=== PATIENT | male | born 1975 | race Caucasian/White ===

== ENCOUNTER 2016-06-26 11:26 | Emergency (ER) | payer BC ==
[2016-06-26] MEDS ORDERED: SODIUM CHLORIDE 0.9% 500 ML IV STA (12:01)
[2016-06-26] MEDS ORDERED: LORazepam 2 MG/ML SYRINGE IV STA (12:01)
[2016-06-26] MEDS ORDERED: SODIUM CHLORIDE 0.9% 1,000 ML IV STA (12:01)
[2016-06-26] MEDS ORDERED: ACETAMINOPHEN TAB 500 MG TAB PO STA (12:02)
--- NOTE | 2016-06-26 12:08 | ED ---
General Adult HPI - General Chief complaint: Arrhythmia/Palpitations Stated complaint: RAPID HEARTRATE Time Seen by Provider: 06/26/16 11:42 Source: patient, family, RN notes reviewed Mode of arrival: wheelchair Limitations: no limitations - History of Present Illness Initial comments: Chief complaint history of [id number] male here with his father. The patient is a teacher. For the last several days he's been having upper respiratory tract type infection sinus type infections. Went to a local urgent care and while there was found to have heart rate 125 or higher. EKG at that time shows sinus tachycardia. Temperature the 100.5. Patient also reports she has anxiety and that may be leading in part to it he does report is on again off again shortness of breath he states difficult to determine whether its illness related or anxiety related. Today's mildly diaphoretic as well. No chest pain. No nausea no vomiting. - Related Data Home Medications Medication Instructions Recorded Confirmed Benzoyl Peroxide/Hydrocortison 1 applic TOPICAL DAILY 06/26/16 06/26/16 [Vanoxide-Hc Lotion] Butalb/Acetaminophen/Caffeine 1 - 2 tab PO Q4-6H PRN MDD 4 TAB 06/26/16 06/26/16 [Dqnhpf-Oiacptaz-Ygwx 50-325-40] Citalopram Hydrobromide [CeleXA] 30 mg PO DAILY 06/26/16 06/26/16 Clindamycin Topical Soln 1 applic TOPICAL BID 06/26/16 06/26/16 [Cleocin-T Topical Soln] Cyclobenzaprine [Flexeril] 10 mg PO HS 06/26/16 06/26/16 L.acidoph,Paracasei, B.lactis 1 cap PO TID 06/26/16 06/26/16 [Probiotic] Loratadine [Claritin] 10 mg PO DAILY 06/26/16 06/26/16 Tretinoin [Retin-A] 1 applic TOPICAL DAILY 06/26/16 06/26/16 Triamcinolone 0.025% Cream 1 applic TOPICAL BID PRN 06/26/16 06/26/16 [Kenalog] Previous Rx's Medication Instructions Recorded Amoxicillin/Potassium Clav 1 each PO Q12HR #20 tab 06/26/16 [Augmentin 875-125 Tablet] Orphenadrine [Norflex] 100 mg PO Q12H #10 tablet.er 06/26/16 Allergies Allergy/AdvReac Type Severity Reaction Status Date / Time povidone-iodine Allergy Rash/Hives Verified 06/26/16 12:29 [From Betadine] soap [From Betadine] Allergy Rash/Hives Verified 06/26/16 12:29 Review of Systems ROS Statement: Those systems with pertinent positive or pertinent negative responses have been documented in the HPI. Review of systems. No headache he does complain of mild congestion. And a productive orange/ greenish colored phlegm. No neck pain, no nausea, no vomiting. No nausea no vomiting no abdominal pain. No chest pain shortness of breath with exertion. All systems are reviewed past medical problems anxiety and migraine tension headaches which takes Fioricet. Surgeries include tonsils and a schwannoma removed from his back. Family history grandfather had lung cancer another grandfather had an IL when he was 66. The patient has ALLERGIES to seasonal ALLERGIES and Betadine. Nonsmoker nondrinker. ROS Other: All systems not noted in ROS Statement are negative. Past Medical History Past Medical History: No Reported History History of Any Multi-Drug Resistant Organisms: None Reported Past Surgical History: Tonsillectomy Additional Past Surgical History / Comment(s): skin biopsy Past Psychological History: Anxiety Smoking Status: Never smoker Past Alcohol Use History: None Reported Past Drug Use History: None Reported General Exam - General Exam Comments Initial Comments: General: The patient is awake and alert, admittedly anxious. With history of anxiety. Vital signs temp 100.5 pulse 140 respiratory rate 18 pulse ox 99% room air blood pressure 142/87 elevated systolic and diastolic most likely due to his anxiety. Eye: Pupils are equal, round and reactive to light, extra-ocular movements are intact ; there is normal conjunctiva bilaterally. No signs of icterus. Ears, nose, mouth and throat: There are moist mucous membranes and no oral lesions. Neck: The neck is supple, there is no tenderness , no anterior cervical lymphadenopathy Cardiovascular: Tachycardic heart rate 120-140. No murmur, rub or gallop is appreciated. Respiratory: Lungs are clear to auscultation, respirations are non-labored, breath sounds are equal. No wheezes, stridor, rales, or rhonchi. Gastrointestinal: Soft, non-distended, non-tender abdomen without masses or organomegaly noted. There is no rebound or guarding present. No CVA tenderness. Bowel sounds are unremarkable. Back: There is no tenderness to palpation in the midline. There is no obvious deformity. No rashes noted. Musculoskeletal: Normal ROM, no tenderness, There is no pedal edema. There is no calf tenderness or swelling. Sensation intact. Pulses equal bilaterally 2+. Neurological: CN II-XII intact, There are no obvious motor or sensory deficits. Coordination appears grossly intact. Speech is normal. Skin: Skin is warm and dry and no rashes or lesions are noted. Psychiatric: Patient admits she has anxiety issues and problems. Limitations: no limitations Course Vital Signs 06/26/16 06/26/16 11:35 12:18 Temperature 100.5 F H Pulse Rate 140 H Pulse Rate [ 120 H Parent Educator ] Respiratory 18 18 Rate Blood Pressure 142/87 O2 Sat by Pulse 99 Oximetry EKG Findings - EKG Comments: EKG Findings:: EKG was done and reviewed at 1159 showing sinus tachycardia rate 129 IN interval was 150 QRS 88 QT [address] elevation mild left atrial enlargement. Nonspecific T-wave changes. Dr. Cast Medical Decision Making - Medical Decision Making Patient's feeling better heart rate has dropped into the 90s and then when talking up to 120 given. The patient is admittedly anxious. I reviewed with them the numbers. The only elevated numbers total bilirubin which the patient reports as typically always elevated his father also has a problem with Gilbert' s syndrome. There is no pain in the right upper quadrant. The patient be placed on Augmentin 875 twice a day for 10 days. He'll be off work tomorrow and advised follow-up with family physician as needed. Also told switched from Flexeril to Norflex. - Lab Data Result diagrams: 06/26/16 12:00 06/26/16 12:00 Lab Results 06/26/16 06/26/16 06/26/16 Range/Units 12:00 12:00 12:00 WBC 11.1 H (3.8-10.6) k/uL RBC 4.96 (4.30-5.90) m/uL Hgb 14.8 (13.0-17.5) gm/dL Hct 42.9 (39.0-53.0) % MCV 86.5 (80.0-100.0) fL MCH 29.8 (25.0-35.0) pg MCHC 34.5 (31.0-37.0) g/dL RDW 13.4 (11.5-15.5) % Plt Count 236 (150-450) k/uL Neutrophils % 86 % Lymphocytes % 5 % Monocytes % 5 % Eosinophils % 0 % Basophils % 0 % Neutrophils # 9.6 H (1.3-7.7) k/uL Lymphocytes # 0.6 L (1.0-4.8) k/uL Monocytes # 0.6 (0-1.0) k/uL Eosinophils # 0.1 (0-0.7) k/uL Basophils # 0.0 (0-0.2) k/uL PT (9.0-12.0) sec INR (<1.1) APTT (22.0-30.0) sec D-Dimer (<0.60) mg/L FEU Sodium 144 (137-145) mmol/L Potassium 4.0 (3.5-5.1) mmol/L Chloride 102 (98-107) mmol/L Carbon Dioxide 26 (22-30) mmol/L Anion Gap 16 mmol/L BUN 13 (9-20) mg/dL Creatinine 1.13 (0.66-1.25) mg/dL Est GFR (MDRD) Af Amer >60 (>60 ml/min/1.73 sqM) Est GFR (MDRD) Non-Af >60 (>60 ml/min/1.73 sqM) Glucose 121 H (74-99) mg/dL Calcium 10.3 H (8.4-10.2) mg/dL Magnesium 1.8 (1.6-2.3) mg/dL Total Bilirubin 2.3 H (0.2-1.3) mg/dL AST 24 (17-59) U/L ALT 41 (21-72) U/L Alkaline Phosphatase 84 (38-126) U/L Total Creatine Kinase 91 (55-170) U/L CK-MB (CK-2) 0.3 (0.0-2.4) ng/mL CK-MB (CK-2) Rel Index 0.3 Troponin I <0.012 (0.000-0.034) ng/mL Total Protein 8.1 (6.3-8.2) g/dL Albumin 4.8 (3.5-5.0) g/dL TSH 4.360 (0.465-4.680) mIU/L 06/26/16 Range/Units 12:00 WBC (3.8-10.6) k/uL RBC (4.30-5.90) m/uL Hgb (13.0-17.5) gm/dL Hct (39.0-53.0) % MCV (80.0-100.0) fL MCH (25.0-35.0) pg MCHC (31.0-37.0) g/dL RDW (11.5-15.5) % Plt Count (150-450) k/uL Neutrophils % % Lymphocytes % % Monocytes % % Eosinophils % % Basophils % % Neutrophils # (1.3-7.7) k/uL Lymphocytes # (1.0-4.8) k/uL Monocytes # (0-1.0) k/uL Eosinophils # (0-0.7) k/uL Basophils # (0-0.2) k/uL PT 10.6 (9.0-12.0) sec INR 1.0 (<1.1) APTT 23.5 (22.0-30.0) sec D-Dimer <0.17 (<0.60) mg/L FEU Sodium (137-145) mmol/L Potassium (3.5-5.1) mmol/L Chloride (98-107) mmol/L Carbon Dioxide (22-30) mmol/L Anion Gap mmol/L BUN (9-20) mg/dL Creatinine (0.66-1.25) mg/dL Est GFR (MDRD) Af Amer (>60 ml/min/1.73 sqM) Est GFR (MDRD) Non-Af (>60 ml/min/1.73 sqM) Glucose (74-99) mg/dL Calcium (8.4-10.2) mg/dL Magnesium (1.6-2.3) mg/dL Total Bilirubin (0.2-1.3) mg/dL AST (17-59) U/L ALT (21-72) U/L Alkaline Phosphatase (38-126) U/L Total Creatine Kinase (55-170) U/L CK-MB (CK-2) (0.0-2.4) ng/mL CK-MB (CK-2) Rel Index Troponin I (0.000-0.034) ng/mL Total Protein (6.3-8.2) g/dL Albumin (3.5-5.0) g/dL TSH (0.465-4.680) mIU/L Disposition Clinical Impression: Sinusitis, Regular sinus tachycardia Disposition: HOME SELF-CARE Condition: Fair Instructions: Sinusitis (ED) Additional Instructions: Take Tylenol for fever and pain. Stop Flexeril use Norflex instead. Take Augmentin until completed. Follow-up with family physician Prescriptions: Amoxicillin/Potassium Clav [Augmentin 875-125 Tablet] 1 each PO Q12HR #20 tab Orphenadrine [Norflex] 100 mg PO Q12H #10 tablet.er Time of Disposition: 13:54
[2016-06-26 12:30] LABS: Basophils % (A) 0 %; CH 30.3; CHCM 35.1; Eosinophils # (A) 0.1 k/uL (0-0.7); Eosinophils % (A) 0 %; HCT 42.9 % (39.0-53.0); HDW 2.69; HGB 14.8 gm/dL (13.0-17.5); Luc # (Auto) 0.34; Luc % (Auto) 3; Lymphocytes # (A) 0.6 k/uL (1.0-4.8); Lymphocytes % (A) 5 %; MCH 29.8 pg (25.0-35.0); MCHC 34.5 g/dL (31.0-37.0); MCV 86.5 fL (80.0-100.0); Mean Platelet Volume 7.6; Monocytes # (A) 0.6 k/uL (0-1.0); Monocytes % (A) 5 %; Neutrophils # (A) 9.6 k/uL (1.3-7.7); Neutrophils % (A) 86 %; RBC 4.96 m/uL (4.30-5.90); RDW 13.4 % (11.5-15.5); WBC 11.1 k/uL (3.8-10.6); WBC (Perox) 11.02
[2016-06-26 12:39] LABS: ALT 41 U/L (21-72); AST 24 U/L (17-59); Alkaline Phosphatase 84 U/L (38-126); Anion Gap 16 mmol/L; Blood Urea Nitrogen 13 mg/dL (9-20); Calcium 10.3 mg/dL (8.4-10.2); Carbon Dioxide 26 mmol/L (22-30); Chloride 102 mmol/L (98-107); Glucose 121 mg/dL (74-99); Magnesium 1.8 mg/dL (1.6-2.3); Non-African American GFR(MDRD) >60 (>60 ml/min/1.73 sqM); Sodium 144 mmol/L (137-145); Total Bilirubin 2.3 mg/dL (0.2-1.3); Total Protein 8.1 g/dL (6.3-8.2)
[2016-06-26 12:49] LABS: Partial Thromboplastin Time 23.5 sec (22.0-30.0); Prothrombin Time 10.6 sec (9.0-12.0)
[2016-06-26 12:51] LABS: Creatine Kinase 91 U/L (55-170)
[2016-06-26 13:04] LABS: Creatine Kinase MB 0.3 ng/mL (0.0-2.4); Troponin I <0.012 ng/mL (0.000-0.034)
[2016-06-26] MEDS ORDERED: AMOXIC-POT CLAV 875MG STARTER 2 EACH TABLET PO STA (13:51)
[2016-06-26 14:08] VITALS: RESP 20
[2016-06-26 14:10] VITALS: BP 120/71; PULSE 110; TEMP 98.5
== END 2016-06-26 14:20 | disposition home or self-care (01) ==
LOC: EC 11:26
DX: J32.9 Chronic sinusitis, unspecified (principal); R00.0 Tachycardia, unspecified; F41.9 Anxiety disorder, unspecified; Z79.899 Other long term (current) drug therapy; Z88.8 Allergy status to other drugs, medicaments and biological substances
CPT/HCPCS: 99285; 96374; 96361 ×2; 36415; 93005; 85379; 80053; 82550; 82553; 83735; 84443; 84484; 85025; 85610; 85730; J2060

== ENCOUNTER → 2016-07-25 | Outpatient (CLI) | payer BC ==
--- NOTE | 2016-07-25 18:00 | CT ---
EXAMINATION TYPE: CT sinus wo con DATE OF EXAM: 07/25/2016 5:13 PM COMPARISON: NONE HISTORY: Pt states of chronic sinus infections and SHAIKH. CT DLP: 628.7 mGycm CONTRAST: None The paranasal sinuses are examined in the axial plane at 2 mm thick sections. Reconstructed images i n the coronal plane were obtained. There is dental amalgam scatter artifact There is thick opacification through the right maxillary sinus. Mucosal thickening is present to the left maxillary sinus. There is some mucosal thickening through mid and posterior right ethmoid air c ells. The sphenoid sinuses are clear. Minimal posterior inferior left frontal sinus mucosal thicken ing is present. The septum is evaluated. There is septal deviation to the left. The ostiomeatal units are patent. No suspicious air-fluid levels are evident. IMPRESSIONS: 1. Mucosal thickening greatest in the right maxillary sinus. Additional mucosal thickening is presen t within the left maxillary sinus with anterior mid right ethmoid air cells and inferior left frontal sinus.
== END | disposition home or self-care (01) ==
LOC: RADCTMAIN 16:59
PROVIDERS: ATTEND Nurse Practitioner Family
DX: J34.89 Other specified disorders of nose and nasal sinuses (principal)
CPT/HCPCS: 70486

== ENCOUNTER → 2017-01-26 | Outpatient (CLI) | payer BC ==
[2017-01-26 16:51] LABS: Basophils % (A) 0 %; CH 30.5; CHCM 34.2; Eosinophils # (A) 0.2 k/uL (0-0.7); Eosinophils % (A) 3 %; HCT 41.2 % (39.0-53.0); HGB 14.3 gm/dL (13.0-17.5); Luc # (Auto) 0.31; Luc % (Auto) 4; Lymphocytes # (A) 1.7 k/uL (1.0-4.8); Lymphocytes % (A) 22 %; MCH 31.1 pg (25.0-35.0); MCHC 34.6 g/dL (31.0-37.0); MCV 89.7 fL (80.0-100.0); Mean Platelet Volume 8.7; Monocytes # (A) 0.5 k/uL (0-1.0); Monocytes % (A) 6 %; Neutrophils # (A) 5.1 k/uL (1.3-7.7); Neutrophils % (A) 65 %; RBC 4.59 m/uL (4.30-5.90); RDW 13.1 % (11.5-15.5); WBC 7.8 k/uL (3.8-10.6); WBC (Perox) 7.65
[2017-01-26 16:58] LABS: Rheumatoid Factor, Qnt <9 IU/mL (<12)
[2017-01-26 16:59] LABS: C Reactive Protein <5.0 mg/L (<10.0)
[2017-01-26 17:46] LABS: Erythrocyte Sedimentation Rate 7 mm/hr (0-15)
[2017-01-27 00:54] LABS: RNP AB Interpretation NEGATIVE (NEGATIVE)
[2017-01-27 13:25] LABS: HLA B27 NEGATIVE; HLA B27 Comment SEEBELOW
== END | disposition home or self-care (01) ==
LOC: LABWHC1 16:18
PROVIDERS: ATTEND Nurse Practitioner Family
DX: M25.50 Pain in unspecified joint (principal); M54.2 Cervicalgia; M26.609 Unspecified temporomandibular joint disorder, unspecified side
CPT/HCPCS: 36415; 85025; 85652; 86140; 86235; 86431; 86812

== ENCOUNTER 2019-11-29 10:21 | Emergency (ER) | payer BC ==
[2019-11-29 10:29] VITALS: RESP 18
[2019-11-29] MEDS ORDERED: ONDANSETRON 4 MG/2 ML VIAL IVP STA (10:38)
[2019-11-29] MEDS ORDERED: KETOROLAC 30 MG/ML 1 ML VIAL IVP STA (10:38)
[2019-11-29] MEDS ORDERED: SODIUM CHLORIDE 0.9% 1,000 ML IV STA (10:38)
--- NOTE | 2019-11-29 10:53 | ED ---
General Adult HPI - General Chief complaint: Abdominal Pain Stated complaint: Pain in R Abdominal Time Seen by Provider: 11/29/19 10:30 Source: patient, RN notes reviewed Mode of arrival: ambulatory Limitations: no limitations - History of Present Illness Initial comments: 44-year-old male presents to the emergency department for a chief complaint of right flank and abdominal pain. This started a couple hours after patient got out of bed. Patient states it starts in his flank and radiates around to his right abdomen and groin area. Patient states he is nauseous and did dry heave. Patient states this could also be musculoskeletal in nature because he has a lot of musculoskeletal problems. However with his family history of kidney stones he is concerned it could be a kidney stone. He denies fevers or chills. Denies dysuria.Patient has no other complaints at this time including shortness of breath, chest pain, nausea or vomiting, headache, or visual changes. - Related Data Home Medications Medication Instructions Recorded Confirmed Benzoyl Peroxide/Hydrocortison 1 applic TOPICAL DAILY 06/26/16 06/26/16 [Vanoxide-Hc Lotion] Butalb/Acetaminophen/Caffeine 1 - 2 tab PO Q4-6H PRN MDD 4 TAB 06/26/16 06/26/16 [Zcepsn-Iczwusca-Axcr 50-325-40] Citalopram Hydrobromide [CeleXA] 30 mg PO DAILY 06/26/16 06/26/16 Clindamycin Topical Soln 1 applic TOPICAL BID 06/26/16 06/26/16 [Cleocin-T Topical Soln] Cyclobenzaprine [Flexeril] 10 mg PO HS 06/26/16 06/26/16 L.acidoph,Paracasei, B.lactis 1 cap PO TID 06/26/16 06/26/16 [Probiotic] Loratadine [Claritin] 10 mg PO DAILY 06/26/16 06/26/16 Tretinoin [Retin-A] 1 applic TOPICAL DAILY 06/26/16 06/26/16 Triamcinolone 0.025% Cream 1 applic TOPICAL BID PRN 06/26/16 06/26/16 [Kenalog] Previous Rx's Medication Instructions Recorded Amoxicillin/Potassium Clav 1 each PO Q12HR #20 tab 06/26/16 [Augmentin 875-125 Tablet] Orphenadrine [Norflex] 100 mg PO Q12H #10 tablet.er 06/26/16 Ibuprofen [Motrin] 600 mg PO Q6HR PRN #20 tab 11/29/19 Ondansetron [Zofran ODT] 4 mg PO Q8HR PRN #15 tab 11/29/19 Tamsulosin [Flomax] 0.4 mg PO DAILY #14 cap 11/29/19 Allergies Allergy/AdvReac Type Severity Reaction Status Date / Time povidone-iodine Allergy Rash/Hives Verified 11/29/19 10:29 [From Betadine] soap [From Betadine] Allergy Rash/Hives Verified 11/29/19 10:29 Review of Systems ROS Statement: Those systems with pertinent positive or pertinent negative responses have been documented in the HPI. ROS Other: All systems not noted in ROS Statement are negative. Past Medical History Past Medical History: Hypertension Additional Past Medical History / Comment(s): tachycardia, on chronic abx for acne History of Any Multi-Drug Resistant Organisms: None Reported Past Surgical History: Tonsillectomy Additional Past Surgical History / Comment(s): skin biopsy Past Psychological History: Anxiety Smoking Status: Never smoker Past Alcohol Use History: None Reported Past Drug Use History: None Reported General Exam Limitations: no limitations General appearance: alert, in no apparent distress Head exam: Present: atraumatic, normocephalic, normal inspection Eye exam: Present: normal appearance, PERRL, EOMI. Absent: scleral icterus, conjunctival injection, periorbital swelling ENT exam: Present: normal exam, mucous membranes moist Neck exam: Present: normal inspection, full ROM. Absent: tenderness, meningismus, lymphadenopathy Respiratory exam: Present: normal lung sounds bilaterally. Absent: respiratory distress, wheezes, rales, rhonchi, stridor Cardiovascular Exam: Present: regular rate, normal rhythm, normal heart sounds. Absent: systolic murmur, diastolic murmur, rubs, gallop, clicks GI/Abdominal exam: Present: soft, normal bowel sounds. Absent: distended, tenderness, guarding, rebound, rigid Back exam: Absent: CVA tenderness (R), CVA tenderness (L) Neurological exam: Present: alert Course Vital Signs 11/29/19 10:24 Temperature 98.2 F Pulse Rate 61 Respiratory 18 Rate Blood Pressure 147/88 O2 Sat by Pulse 100 Oximetry Medical Decision Making - Medical Decision Making HPI physical exam as documented. CBC CMP unremarkable. Urinalysis is negative. Patient however does have a 2 mm calculus in the distal right ureter at the level of the UVJ causing mild hydroureter and hydronephrosis on the right. Patient's pain was controlled with Toradol. Patient will be discharged home to follow up with urology. He will be given Flomax, Zofran, Tylenol 3, and Motrin. He will return here for any worsening symptoms - Lab Data Result diagrams: 11/29/19 11:12 11/29/19 11:12 Lab Results 11/29/19 11/29/19 11/29/19 Range/Units 11:12 11:12 11:12 WBC 13.0 H (3.8-10.6) k/uL RBC 5.23 (4.30-5.90) m/uL Hgb 15.2 (13.0-17.5) gm/dL Hct 46.1 (39.0-53.0) % MCV 88.2 (80.0-100.0) fL MCH 29.1 (25.0-35.0) pg MCHC 33.0 (31.0-37.0) g/dL RDW 13.2 (11.5-15.5) % Plt Count 295 (150-450) k/uL Neutrophils % 78 % Lymphocytes % 14 % Monocytes % 4 % Eosinophils % 1 % Basophils % 0 % Neutrophils # 10.1 H (1.3-7.7) k/uL Lymphocytes # 1.8 (1.0-4.8) k/uL Monocytes # 0.6 (0-1.0) k/uL Eosinophils # 0.2 (0-0.7) k/uL Basophils # 0.1 (0-0.2) k/uL Sodium 142 (137-145) mmol/L Potassium 4.6 (3.5-5.1) mmol/L Chloride 106 (98-107) mmol/L Carbon Dioxide 24 (22-30) mmol/L Anion Gap 12 mmol/L BUN 15 (9-20) mg/dL Creatinine 1.05 (0.66-1.25) mg/dL Est GFR (CKD-EPI)AfAm >90 (>60 ml/min/1.73 sqM) Est GFR (CKD-EPI)NonAf 86 (>60 ml/min/1.73 sqM) Glucose 135 H (74-99) mg/dL Calcium 10.8 H (8.4-10.2) mg/dL Total Bilirubin 1.4 H (0.2-1.3) mg/dL AST 28 (17-59) U/L ALT 20 (4-49) U/L Alkaline Phosphatase 63 (38-126) U/L Total Protein 8.3 H (6.3-8.2) g/dL Albumin 5.0 (3.5-5.0) g/dL Amylase 100 (30-110) U/L Lipase 120 (23-300) U/L Urine Color Yellow Urine Appearance Clear (Clear) Urine pH 6.0 (5.0-8.0) Ur Specific [place] 1.015 (1.001-1.035) Urine Protein Negative (Negative) Urine Glucose (UA) Negative (Negative) Urine Ketones Negative (Negative) Urine Blood Negative (Negative) Urine Nitrite Negative (Negative) Urine Bilirubin Negative (Negative) Urine Urobilinogen <2.0 (<2.0) mg/dL Ur Leukocyte Esterase Negative (Negative) Disposition Clinical Impression: Kidney stone on right side Disposition: HOME SELF-CARE Condition: Good Instructions (If sedation given, give patient instructions): Kidney Stones (ED) Additional Instructions: Please take medications as directed. These are prescribed to [facility] on [address]. Please follow-up with urology by calling on Sunday for an appointment. If you have worsening symptoms over the weekend or not able to keep down liquids return to the emergency room. Prescriptions: Tamsulosin [Flomax] 0.4 mg PO DAILY #14 cap Ibuprofen [Motrin] 600 mg PO Q6HR PRN #20 tab PRN Reason: Pain Ondansetron [Zofran ODT] 4 mg PO Q8HR PRN #15 tab PRN Reason: Nausea Is patient prescribed a controlled substance at d/c from ED?: No Referrals: Chapincito So MD [Primary Care Provider] - 1-2 days Ramon Saldaña MD [STAFF PHYSICIAN] - 1-2 days Time of Disposition: 13:02
[2019-11-29 11:29] LABS: Appearance,Urine Clear (Clear); Bilirubin,Urine Negative (Negative); Blood,Urine Negative (Negative); Color,Urine Yellow; Glucose,Urine (UA) Negative (Negative); Ketones,Urine Negative (Negative); Leukocyte Esterase,Urine Negative (Negative); Nitrite,Urine Negative (Negative); Protein,Urine Negative (Negative); Specific Gravity,Urine 1.015 (1.001-1.035); Urobilinogen,Urine <2.0 mg/dL (<2.0)
[2019-11-29 11:34] LABS: ALT 20 U/L (4-49); AST 28 U/L (17-59); African American GFR (CKD) >90 (>60 ml/min/1.73 sqM); Alkaline Phosphatase 63 U/L (38-126); Amylase 100 U/L (30-110); Anion Gap 12 mmol/L; Basophils # (A) 0.1 k/uL (0-0.2); Basophils % (A) 0 %; Blood Urea Nitrogen 15 mg/dL (9-20); Calcium 10.8 mg/dL (8.4-10.2); Carbon Dioxide 24 mmol/L (22-30); Chloride 106 mmol/L (98-107); Eosinophils # (A) 0.2 k/uL (0-0.7); Eosinophils % (A) 1 %; Glucose 135 mg/dL (74-99); HCT 46.1 % (39.0-53.0); HGB 15.2 gm/dL (13.0-17.5); Lymphocytes # (A) 1.8 k/uL (1.0-4.8); Lymphocytes % (A) 14 %; MCH 29.1 pg (25.0-35.0); MCV 88.2 fL (80.0-100.0); Mean Platelet Volume 9.5; Monocytes # (A) 0.6 k/uL (0-1.0); Monocytes % (A) 4 %; Neutrophils # (A) 10.1 k/uL (1.3-7.7); Neutrophils % (A) 78 %; Non-African American GFR(CKD) 86 (>60 ml/min/1.73 sqM); Platelet Count 295 k/uL (150-450); Potassium 4.6 mmol/L (3.5-5.1); RBC 5.23 m/uL (4.30-5.90); RDW 13.2 % (11.5-15.5); Sodium 142 mmol/L (137-145); Total Bilirubin 1.4 mg/dL (0.2-1.3); Total Protein 8.3 g/dL (6.3-8.2)
[2019-11-29] MEDS ORDERED: methylPREDNISolone SOD SUCCI 125 MG/2 ML VIAL IV STA (11:50)
[2019-11-29] MEDS ORDERED: diphenhydrAMINE 50 MG/ML 1 ML VIAL IVP STA (11:50)
[2019-11-29] MEDS ORDERED: FAMOTIDINE 20 MG/2 ML VIAL IV STA (11:50)
--- NOTE | 2019-11-29 12:49 | CT ---
EXAMINATION TYPE: CT abdomen pelvis w con DATE OF EXAM: 11/29/2019 REFERENCE: None. HISTORY: RLQ pain, flank pain HISTORY: right flank pain REFERENCE: NONE CT DLP: 937.6 mGy Automated exposure control for dose reduction was used. TECHNIQUE: Helical acquisition through the abdomen and pelvis was obtained following the oral ingesti on of without Oral Contrast and following intravenous administration of 100 mL of Isovue 300. The mumtaz a was reformatted in axial, coronal and sagittal projections. FINDINGS: Visualized portions of the lungs are clear. There is no pleural or pericardial fluid. The heart is nonenlarged. Within the abdomen, the liver is mildly prominent measuring 18 cm. The spleen and gallbladder are nor mal. Both adrenal glands are normal. There is a 2 mm calculus at the level of the right UVJ causing mild hydroureter on the right and mild hydronephrosis IMPRESSION: 2 MM CALCULUS IN THE DISTAL RIGHT URETER AT THE LEVEL OF THE UVJ CAUSING MILD HYDROURETER AND HYDRONE PHROSIS ON THE RIGHT.
[2019-11-29 13:09] VITALS: BP 147/90; PULSE 70; TEMP 99.1
[2019-11-29] MEDS ORDERED: ACET/COD 300 MG/30 MG STARTER PACK 6 TAB BTL PO STA (13:12)
== END 2019-11-29 13:28 | disposition home or self-care (01) ==
LOC: EC 10:21
DX: N20.0 Calculus of kidney (principal); I10 Essential (primary) hypertension; F41.9 Anxiety disorder, unspecified; Z88.8 Allergy status to other drugs, medicaments and biological substances; Z91.048 Other nonmedicinal substance allergy status; Z79.899 Other long term (current) drug therapy; Z90.89 Acquired absence of other organs
CPT/HCPCS: 36415; 80053; 82150; 83690; 85025; 81003; 74177; 99284; 96374; 96375 ×4; 96361; J1200; J2930; J2405; J1885; Q9967